=== PATIENT | female | born 1935 | race Caucasian/White ===

== ENCOUNTER 2022-11-14 08:53 | Emergency (ER) | payer MEDICARE, MEDICAID ==
[2022-11-14 09:45] LABS: CORONAVIRUS COVID-19 NAA POSITIVE (NEGATIVE)
[2022-11-14] MEDS ORDERED: Acetaminophen 500 MG Tab PO ONE (09:59)
[2022-11-14] MEDS ORDERED: Sodium Chloride 0.9% 500 ML IV ONE (10:07)
== END 2022-11-14 11:25 | disposition home or self-care (01) ==
LOC: JP.ED 08:53
DX: U07.1 COVID-19 (principal); T79.6XXA Traumatic ischemia of muscle, initial encounter; R53.1 Weakness; Z88.8 Allergy status to other drugs, medicaments and biological substances; Z88.4 Allergy status to anesthetic agent; Z79.82 Long term (current) use of aspirin; Z79.84 Long term (current) use of oral hypoglycemic drugs; Z79.899 Other long term (current) drug therapy
CPT/HCPCS: 0241U; 36415; 80048; 82550; 85025; 96360; 99284; A9270; J7040; 99283